=== PATIENT | female | born 1995 | race Hispanic/Latino ===

== ENCOUNTER 2021-08-30 23:33 | Emergency (ER) | payer MEDICAID ==
[2021-08-31] MEDS ORDERED: LIDOCAINE HCL 400MG/20ML VIAL ONE (01:33)
[2021-08-31] MEDS ORDERED: AMPICILLIN/SULBAC 1.5GM VIAL IV STA (02:11)
[2021-08-31] MEDS ORDERED: 0.9%NACL 1000ML 1,000 ML IV ONE (02:30)
[2021-08-31] MEDS ORDERED: DIPH,PERTUSS(ACELL),TET VAC/PF 0.5 ML VIAL IM ONE (02:30)
[2021-08-31] MEDS ORDERED: TETANUS/DIPHTHERIA TOXOID [ADULT] 0.5 ML VIAL IM ONE (02:37)
[2021-08-31] MEDS ORDERED: CEPH500B PO (04:37)
[2021-08-31 05:20] VITALS: BP 114/78
== END 2021-08-31 05:31 | disposition home or self-care (01) ==
LOC: EDH 23:33
DX: S61.210A Laceration without foreign body of right index finger without damage to nail, initial encounter (principal); W25.XXXA Contact with sharp glass, initial encounter; Y93.G1 Activity, food preparation and clean up; Y92.098 Other place in other non-institutional residence as the place of occurrence of the external cause; Y99.8 Other external cause status
CPT/HCPCS: 12001; 73130; 90471; 90714; 96365; 99285; J0295; J3490; J7030; 96372